=== PATIENT | female | born 1980 | race Caucasian/White ===

== ENCOUNTER 2020-08-27 11:09 | Inpatient (IN) ==
[2020-08-27 12:57] LABS: ABS Eosinophils 0.2 10^3/ul (0-0.6); ABS Lymphocytes 1.5 10^3/ul (1.0-4.8); ABS Monocytes 0.5 10^3/ul (0-0.8); ABS Neutrophils 6.5 10^3/ul (1.5-7.7); Eosinophil % 2.4 %; Hematocrit 39 % (35-47); Lymphocyte % 17.3 %; Mean Corpuscular HGB Conc 31 g/dL (31-36); Mean Corpuscular Hemoglobin 24 pg (27-31); Mean Corpuscular Volume 77 fL (80-97); Mean Platelet Volume 7.1 fL (7.4-10.4); Platelet Count 369 10^3/uL (150-450); Red Blood Count 5.11 10^6 /uL (3.70-4.87); Red Cell Distribution Width 17 % (10-15); White Blood Count 8.7 10^3/uL (3.5-10.8)
[2020-08-27 13:15] LABS: ALT 15 U/L (7-52); AST 12 U/L (13-39); Albumin 3.8 g/dL (3.2-5.2); Albumin/Globulin Ratio 1.1 (1-3); Alkaline Phosphatase 89 U/L (34-104); Anion Gap 4 mmol/L (2-11); BUN/Creatinine Ratio 12.7 (8-20); Blood Urea Nitrogen 10 mg/dL (6-24); CO2 Carbon Dioxide 36 mmol/L (22-32); Calcium 9.2 mg/dL (8.6-10.3); Chloride 99 mmol/L (101-111); EGFR African American 96.6 (>60); EGFR Non-African American 79.8 (>60); Globulin 3.4 g/dL (2-4); Glucose 120 mg/dL (70-100); Magnesium 2.1 mg/dL (1.9-2.7); Potassium 3.8 mmol/L (3.5-5.0); Sodium 139 mmol/L (135-145); Total Protein 7.2 g/dL (6.4-8.9)
[2020-08-27 13:16] LABS: Troponin I 0.05 ng/mL (<0.03)
[2020-08-27] MEDS ORDERED: NS 0.9% 1000 ml BAG 500 ML IV ONE (13:21)
[2020-08-27] MEDS ORDERED: Iohexol 350 (CONTRAST) 500 ML MDV IV ONE (13:23)
[2020-08-27 13:34] LABS: TSH Ultra Thyroid Stim Horm 5.35 mcIU/mL (0.34-5.60)
[2020-08-27 17:13] LABS: Troponin I 0.04 ng/mL (<0.03)
[2020-08-27 17:36] LABS: Cholesterol 196 mg/dL; HDL Cholesterol 60.6 mg/dL; LDL Cholesterol 119 mg/dL; Triglycerides 80 mg/dL
[2020-08-27] MEDS: Furosemide 40 mg/4 ml IV VIAL IV SLOW PU SCH (17:44)
[2020-08-27] MEDS: Heparin 5000 UNITS/ML 1 mL VIAL SUBCUT SCH (21:41)
[2020-08-28] MEDS: Heparin 5000 UNITS/ML 1 mL VIAL SUBCUT SCH (05:00)
[2020-08-28 06:25] LABS: ABS Basophils 0.1 10^3/ul (0-0.2); ABS Eosinophils 0.1 10^3/ul (0-0.6); ABS Lymphocytes 1.1 10^3/ul (1.0-4.8); ABS Monocytes 0.6 10^3/ul (0-0.8); ABS Neutrophils 8.3 10^3/ul (1.5-7.7); Hematocrit 38 % (35-47); Hemoglobin 11.7 g/dL (12.0-16.0); Lymphocyte % 11.2 %; Mean Corpuscular HGB Conc 31 g/dL (31-36); Mean Corpuscular Hemoglobin 24 pg (27-31); Mean Corpuscular Volume 77 fL (80-97); Mean Platelet Volume 7.6 fL (7.4-10.4); Platelet Count 383 10^3/uL (150-450); Red Blood Count 4.94 10^6 /uL (3.70-4.87); Red Cell Distribution Width 17 % (10-15); White Blood Count 10.1 10^3/uL (3.5-10.8)
[2020-08-28 06:48] LABS: Calcium 8.9 mg/dL (8.6-10.3); EGFR African American 92.5 (>60); EGFR Non-African American 76.5 (>60); Potassium 4.1 mmol/L (3.5-5.0)
[2020-08-28] MEDS ORDERED: Perflutren Lipid Microsphere 3 ML VIAL ONE (08:13)
[2020-08-28 08:24] LABS: % Iron Saturation 7 % (15-55); Iron 30 ug/dL (50-212); Total Iron Binding Capacity 458 mcg/dL (250-450); Transferrin 327 mg/dL (203-362); Unsaturated Iron Binding < 443 ug/dL
[2020-08-28 08:44] LABS: Ferritin 10.7 ng/mL (11-307)
[2020-08-28] MEDS: Furosemide 40 mg/4 ml IV VIAL IV SLOW PU SCH (09:15)
[2020-08-28] MEDS: Enoxaparin 40 MG/0.4 ML SYR SUBCUT SCH (12:40)
[2020-08-28] MEDS ORDERED: Furosemide 40 mg/4 ml IV VIAL IV SLOW PU SCH (15:00)
[2020-08-28 20:50] LABS: Urine Benzodiazepine Screen None Detected (None Detect); Urine Cannabinoids Screen None Detected (None Detect); Urine Opiates Screen None Detected (None Detect)
[2020-08-29 06:16] LABS: ABS Basophils 0.1 10^3/ul (0-0.2); ABS Eosinophils 0.1 10^3/ul (0-0.6); ABS Lymphocytes 1.8 10^3/ul (1.0-4.8); ABS Monocytes 0.6 10^3/ul (0-0.8); Eosinophil % 1.5 %; Hematocrit 38 % (35-47); Hemoglobin 11.8 g/dL (12.0-16.0); Lymphocyte % 18.4 %; Mean Corpuscular HGB Conc 31 g/dL (31-36); Mean Corpuscular Hemoglobin 24 pg (27-31); Mean Corpuscular Volume 76 fL (80-97); Mean Platelet Volume 7.2 fL (7.4-10.4); Platelet Count 373 10^3/uL (150-450); Red Blood Count 4.96 10^6 /uL (3.70-4.87); Red Cell Distribution Width 17 % (10-15); White Blood Count 9.6 10^3/uL (3.5-10.8)
[2020-08-29 06:31] LABS: BUN/Creatinine Ratio 11.8 (8-20); Calcium 9.3 mg/dL (8.6-10.3); EGFR Non-African American 83.5 (>60); Phosphorus 3.2 mg/dL (2.5-5.0); Potassium 4.2 mmol/L (3.5-5.0)
[2020-08-29] MEDS: Iron Sucrose 200 MG in NS 0.9% 100 ml BAG 100 ML IVPB SCH (09:38)
[2020-08-29] MEDS: Enoxaparin 40 MG/0.4 ML SYR SUBCUT SCH (12:25)
[2020-08-30 05:41] LABS: ABS Eosinophils 0.1 10^3/ul (0-0.6); ABS Lymphocytes 0.8 10^3/ul (1.0-4.8); ABS Monocytes 0.6 10^3/ul (0-0.8); ABS Neutrophils 8.5 10^3/ul (1.5-7.7); Eosinophil % 1.1 %; Hematocrit 37 % (35-47); Hemoglobin 11.2 g/dL (12.0-16.0); Lymphocyte % 7.8 %; Mean Corpuscular HGB Conc 31 g/dL (31-36); Mean Corpuscular Hemoglobin 23 pg (27-31); Mean Corpuscular Volume 76 fL (80-97); Mean Platelet Volume 7.2 fL (7.4-10.4); Platelet Count 342 10^3/uL (150-450); Red Blood Count 4.78 10^6 /uL (3.70-4.87); Red Cell Distribution Width 17 % (10-15)
[2020-08-30 05:58] LABS: BUN/Creatinine Ratio 14.3 (8-20); Potassium 3.9 mmol/L (3.5-5.0)
[2020-08-30 05:59] LABS: Calcium 8.6 mg/dL (8.6-10.3); EGFR Non-African American 91.8 (>60)
[2020-08-30] MEDS ORDERED: Furosemide 20 mg/2 ml IV VIAL IV ONE (08:02)
[2020-08-30] MEDS: Enoxaparin 40 MG/0.4 ML SYR SUBCUT SCH (11:52)
[2020-08-30] MEDS: Iron Sucrose 200 MG in NS 0.9% 100 ml BAG 100 ML IVPB SCH (11:53)
[2020-08-31 05:32] LABS: ABS Eosinophils 0.3 10^3/ul (0-0.6); ABS Lymphocytes 1.2 10^3/ul (1.0-4.8); ABS Monocytes 0.6 10^3/ul (0-0.8); ABS Neutrophils 5.6 10^3/ul (1.5-7.7); Eosinophil % 4.1 %; Hematocrit 36 % (35-47); Hemoglobin 11.3 g/dL (12.0-16.0); Lymphocyte % 15.4 %; Mean Corpuscular HGB Conc 32 g/dL (31-36); Mean Corpuscular Hemoglobin 24 pg (27-31); Mean Corpuscular Volume 76 fL (80-97); Mean Platelet Volume 7.2 fL (7.4-10.4); Platelet Count 324 10^3/uL (150-450); Red Blood Count 4.71 10^6 /uL (3.70-4.87); Red Cell Distribution Width 17 % (10-15); White Blood Count 7.7 10^3/uL (3.5-10.8)
[2020-08-31 05:33] LABS: BUN/Creatinine Ratio 10.8 (8-20); EGFR African American 104.1 (>60); EGFR Non-African American 86.1 (>60); Potassium 3.8 mmol/L (3.5-5.0)
[2020-08-31 07:49] LABS: Phosphorus 3.2 mg/dL (2.5-5.0)
[2020-08-31] MEDS ORDERED: NS 0.9% 100 ml BAG 100 ML ONE (08:45)
[2020-08-31] MEDS: Iron Sucrose 200 MG in NS 0.9% 100 ml BAG 100 ML IVPB SCH (08:47)
[2020-08-31] MEDS: Enoxaparin 40 MG/0.4 ML SYR SUBCUT SCH (13:04)
[2020-08-31] MEDS ORDERED: Magnesium Hydroxide LIQ 30 ML UDC PO ONE (21:37)
[2020-08-31] MEDS ORDERED: Senna TAB 8.6 mg TAB PO ONE (21:38)
[2020-09-01 06:55] LABS: BUN/Creatinine Ratio 15.7 (8-20); Calcium 9.5 mg/dL (8.6-10.3); EGFR Non-African American 91.8 (>60); Potassium 4.2 mmol/L (3.5-5.0)
[2020-09-01 09:26] LABS: ABS Basophils 0.1 10^3/ul (0-0.2); ABS Eosinophils 0.3 10^3/ul (0-0.6); ABS Lymphocytes 1.4 10^3/ul (1.0-4.8); ABS Monocytes 0.5 10^3/ul (0-0.8); ABS Neutrophils 5.5 10^3/ul (1.5-7.7); Eosinophil % 3.9 %; Hematocrit 40 % (35-47); Hemoglobin 12.2 g/dL (12.0-16.0); Lymphocyte % 17.7 %; Mean Corpuscular HGB Conc 31 g/dL (31-36); Mean Corpuscular Hemoglobin 24 pg (27-31); Mean Corpuscular Volume 76 fL (80-97); Mean Platelet Volume 7.8 fL (7.4-10.4); Nucleated Red Blood Cells % 0.1; Platelet Count 362 10^3/uL (150-450); Red Blood Count 5.18 10^6 /uL (3.70-4.87); Red Cell Distribution Width 17 % (10-15); White Blood Count 7.7 10^3/uL (3.5-10.8)
[2020-09-01 09:43] LABS: Calcium 9.7 mg/dL (8.6-10.3); Potassium 4.5 mmol/L (3.5-5.0)
[2020-09-01 09:48] LABS: BUN/Creatinine Ratio 15.3 (8-20); EGFR African American 107.5 (>60); EGFR Non-African American 88.8 (>60)
[2020-09-01] MEDS: Iron Sucrose 200 MG in NS 0.9% 100 ml BAG 100 ML IVPB SCH (10:51)
[2020-09-01] MEDS: Enoxaparin 40 MG/0.4 ML SYR SUBCUT SCH (14:24)
[2020-09-02 05:48] LABS: BUN/Creatinine Ratio 16.9 (8-20); Calcium 9.2 mg/dL (8.6-10.3); EGFR African American 120.9 (>60)
[2020-09-02 05:50] LABS: ABS Eosinophils 0.2 10^3/ul (0-0.6); ABS Monocytes 0.5 10^3/ul (0-0.8); ABS Neutrophils 4.5 10^3/ul (1.5-7.7); Eosinophil % 2.8 %; Hematocrit 39 % (35-47); Hemoglobin 11.5 g/dL (12.0-16.0); Lymphocyte % 16.4 %; Mean Corpuscular HGB Conc 29 g/dL (31-36); Mean Corpuscular Hemoglobin 24 pg (27-31); Mean Corpuscular Volume 81 fL (80-97); Mean Platelet Volume 7.6 fL (7.4-10.4); Nucleated Red Blood Cells % 0.2; Platelet Count 312 10^3/uL (150-450); Red Blood Count 4.86 10^6 /uL (3.70-4.87); Red Cell Distribution Width 17 % (10-15); White Blood Count 6.2 10^3/uL (3.5-10.8)
[2020-09-02] MEDS: Iron Sucrose 200 MG in NS 0.9% 100 ml BAG 100 ML IVPB SCH (10:38)
[2020-09-02] MEDS: Enoxaparin 40 MG/0.4 ML SYR SUBCUT SCH (10:38)
[2020-09-03 06:38] LABS: BUN/Creatinine Ratio 18.9 (8-20); Calcium 9.2 mg/dL (8.6-10.3); EGFR African American 104.1 (>60); EGFR Non-African American 86.1 (>60); Potassium 3.9 mmol/L (3.5-5.0)
[2020-09-03] MEDS: Enoxaparin 40 MG/0.4 ML SYR SUBCUT SCH (12:39)
[2020-09-04] MEDS: Enoxaparin 40 MG/0.4 ML SYR SUBCUT SCH (11:53)
[2020-09-05 06:18] LABS: BUN/Creatinine Ratio 15.7 (8-20); Calcium 9.2 mg/dL (8.6-10.3); EGFR Non-African American 91.8 (>60); Potassium 4.1 mmol/L (3.5-5.0)
[2020-09-05 07:55] LABS: ABS Basophils 0.1 10^3/ul (0-0.2); ABS Eosinophils 0.2 10^3/ul (0-0.6); ABS Lymphocytes 1.3 10^3/ul (1.0-4.8); ABS Monocytes 0.5 10^3/ul (0-0.8); ABS Neutrophils 5.4 10^3/ul (1.5-7.7); Eosinophil % 2.3 %; Hematocrit 38 % (35-47); Hemoglobin 11.8 g/dL (12.0-16.0); Lymphocyte % 17.8 %; Mean Corpuscular HGB Conc 31 g/dL (31-36); Mean Corpuscular Hemoglobin 24 pg (27-31); Mean Corpuscular Volume 77 fL (80-97); Nucleated Red Blood Cells % 0.1; Platelet Count 319 10^3/uL (150-450); Red Blood Count 4.93 10^6 /uL (3.70-4.87); Red Cell Distribution Width 18 % (10-15); White Blood Count 7.4 10^3/uL (3.5-10.8)
[2020-09-05] MEDS ORDERED: Albuterol 2.5mg/3 ml (0.083%) NEB.SOLN INH ONE (09:08)
[2020-09-05] MEDS: Enoxaparin 40 MG/0.4 ML SYR SUBCUT SCH (12:22)
[2020-09-06 12:36] VITALS: BP 150/77
[2020-09-06] MEDS: Enoxaparin 40 MG/0.4 ML SYR SUBCUT SCH (14:31)
== END 2020-09-06 16:15 | disposition home or self-care (01) | DRG 205 ==
LOC: ED 11:09 → MEDTELE 16:30 → ICU 08-28 17:18 → MEDTELE 08-31 11:52 → MED 09-01 03:04
PROVIDERS: ADMIT Hospitalist; ATTEND Internal Medicine